=== PATIENT | male | born 1975 | race Caucasian/White ===

== ENCOUNTER 2018-06-30 15:09 | Inpatient (IN) | payer BC ==
[2018-06-30 15:57] LABS: ADD MAN DIFF? NO
[2018-06-30 16:09] LABS: WHITE BLOOD COUNT 8.2 10^3/ul (4.8-10.8)
[2018-06-30 16:09] LABS: BASOPHILS % 0.4 % (0.0-2.0); EOSINOPHILS # 0.1 10^3/ul (0.0-0.5); EOSINOPHILS % 1.6 % (0.0-7.0); HEMATOCRIT 32.9 % (42.0-52.0); HEMOGLOBIN 10.8 g/dl (14.0-18.0); LYMPHOCYTES # 2.7 10^3/ul (0.8-2.9); LYMPHOCYTES % 33.6 % (15.0-51.0); MEAN CORPUSCULAR HEMOGLOBIN 28.4 pg (29.0-33.0); MEAN CORPUSCULAR HGB CONC 32.8 g/dl (32.0-37.0); MEAN CORPUSCULAR VOLUME 86.6 fl (82.0-101.0); MEAN PLATELET VOLUME 8.2 fl (7.4-10.4); MONOCYTE # 0.7 10^3/ul (0.3-0.9); MONOCYTES % 8.7 % (0.0-11.0); NEUTROPHIL # 4.4 10^3/ul (1.6-7.5); NEUTROPHILS % 53.7 % (39.0-77.0); PLATELET COUNT 563 10^3/UL (140-415); RED CELL DISTRIBUTION WIDTH 13.4 % (11.5-14.5)
[2018-06-30] MEDS: KETOROLAC 30 MG INJ IV (16:09)
[2018-06-30] MEDS: SODIUM CHLORIDE 0.9% 1L BAG IV* (16:09)
[2018-06-30] MEDS: PIPER-TAZO 3.375 GM IV (PMX) 100 ML IVPB (16:09)
[2018-06-30 16:28] LABS: INR 0.97
[2018-06-30 16:29] LABS: BLOOD UREA NITROGEN 16 mg/dl (7-20); CALCIUM 9.3 mg/dl (8.4-10.2); CARBON DIOXIDE 31 mmol/L (21-31); CHLORIDE 103 mmol/L (97-110); GLUCOSE 140 mg/dl (70-220); PARTIAL THROMBOPLASTIN TIME 34.3 Sec (23.0-35.0); POTASSIUM 3.7 mmol/L (3.5-5.1); SODIUM 140 mmol/L (135-144)
[2018-06-30 16:41] LABS: TROPONIN-I < 0.012 ng/ml (0.000-0.120)
[2018-06-30] MEDS ORDERED: VANCOMYCIN IV PER PHARMACY XX (17:00)
[2018-06-30] MEDS ORDERED: ACETAMINOPHEN 325 MG TAB PO (17:00)
[2018-06-30] MEDS ORDERED: ONDANSETRON 4 MG INJ IV (17:00)
[2018-06-30] MEDS: VANCOMYCIN 1 GM (PMX) 250 ML IVPB (17:07)
[2018-06-30] MEDS ORDERED: NACL 0.9% 3 ML SYG IV (17:30)
[2018-06-30] MEDS ORDERED: PENDING SANTYL ORDER FOR WOUND CARE XX (20:30)
[2018-06-30] MEDS ORDERED: COLLAGENASE 5 GM (UD JAR) TOP (21:47)
[2018-06-30] MEDS: ZOLPIDEM 5 MG TAB PO (21:50)
[2018-06-30] MEDS: VANCOMYCIN 1 GM 250 ML IVPB (21:50)
[2018-07-01] MEDS: PIPER-TAZO 3.375 GM IV (PMX) 100 ML IVPB ×4 (00:05→21:27)
[2018-07-01 01:41] LABS: ADD UMIC NO; UR ASCORBIC ACID NEGATIVE (NEGATIVE); UR BILIRUBIN (Dip) NEGATIVE (NEGATIVE); UR BLOOD (Dip) NEGATIVE (NEGATIVE); UR CLARITY CLEAR (CLEAR); UR COLOR YELLOW (YELLOW); UR GLUCOSE (Dip) NEGATIVE (NEGATIVE); UR KETONES (Dip) NEGATIVE (NEGATIVE); UR LEUKOCYTE ESTERASE (Dip) NEGATIVE Leu/ul (NEGATIVE); UR NITRITE (Dip) NEGATIVE (NEGATIVE); UR SPECIFIC GRAVITY (Dip) 1.013 (1.003-1.030); UR TOTAL PROTEIN (Dip) NEGATIVE (NEGATIVE); UR UROBILINOGEN (Dip) NEGATIVE (NEGATIVE)
[2018-07-01] MEDS: VANCOMYCIN 1.25 GM in SOD CHLORIDE 0.9% 250 ML IVPB ×3 (05:10→17:11)
[2018-07-01 07:00] LABS: ADD MAN DIFF? NO
[2018-07-01 07:08] LABS: BASOPHILS % 0.4 % (0.0-2.0); EOSINOPHILS # 0.2 10^3/ul (0.0-0.5); EOSINOPHILS % 2.3 % (0.0-7.0); HEMATOCRIT 28.2 % (42.0-52.0); HEMOGLOBIN 9.1 g/dl (14.0-18.0); LYMPHOCYTES # 2.4 10^3/ul (0.8-2.9); LYMPHOCYTES % 35.2 % (15.0-51.0); MEAN CORPUSCULAR HEMOGLOBIN 28.1 pg (29.0-33.0); MEAN CORPUSCULAR HGB CONC 32.3 g/dl (32.0-37.0); MEAN PLATELET VOLUME 8.3 fl (7.4-10.4); MONOCYTE # 0.6 10^3/ul (0.3-0.9); MONOCYTES % 9.3 % (0.0-11.0); NEUTROPHIL # 3.5 10^3/ul (1.6-7.5); NEUTROPHILS % 50.8 % (39.0-77.0); PLATELET COUNT 456 10^3/UL (140-415); RED BLOOD COUNT 3.24 10^6/ul (4.70-6.10); RED CELL DISTRIBUTION WIDTH 13.6 % (11.5-14.5)
[2018-07-01 07:08] LABS: WHITE BLOOD COUNT 6.9 10^3/ul (4.8-10.8)
[2018-07-01 07:28] LABS: ALANINE AMINOTRANSFERASE 36 IU/L (13-69); ALBUMIN 2.5 g/dl (3.3-4.9); ALBUMIN/GLOBULIN RATIO 0.89; ALKALINE PHOSPHATASE 61 IU/L (42-121); ASPARTATE AMINO TRANSFERASE 34 IU/L (15-46); BILIRUBIN,INDIRECT 0.2 mg/dl (0-1.1); BILIRUBIN,TOTAL 0.2 mg/dl (0.2-1.3); BLOOD UREA NITROGEN 14 mg/dl (7-20); CALCIUM 8.3 mg/dl (8.4-10.2); CARBON DIOXIDE 26 mmol/L (21-31); CHLORIDE 112 mmol/L (97-110); CREATININE 0.92 mg/dl (0.61-1.24); GLUCOSE 92 mg/dl (70-220); POTASSIUM 4.2 mmol/L (3.5-5.1); SODIUM 143 mmol/L (135-144); TOTAL PROTEIN 5.3 g/dl (6.1-8.1)
[2018-07-01 08:02] LABS: HEMOGLOBIN A1C 5.6 % (0-5.9)
[2018-07-01 08:42] LABS: ANION GAP 5 (5-13)
[2018-07-01] MEDS: HYDROCODONE/APAP (5/325) TAB PO ×3 (09:38→22:33)
[2018-07-01 10:05] LABS: ANION GAP 6 (5-13)
[2018-07-01] MEDS: SODIUM HYPOCHLORITE (1/40) 1 APPLIC BTL IRR (21:28)
[2018-07-01] MEDS: ZOLPIDEM 5 MG TAB PO (22:33)
[2018-07-02] MEDS: ONDANSETRON 4 MG INJ IV (03:40)
[2018-07-02] MEDS: PIPER-TAZO 3.375 GM IV (PMX) 100 ML IVPB (05:43)
[2018-07-02 05:50] LABS: VANCOMYCIN,TROUGH 14.3 ug/ml (10.0-20.0)
[2018-07-02] MEDS: VANCOMYCIN 1.25 GM in SOD CHLORIDE 0.9% 250 ML IVPB (07:04)
[2018-07-02] MEDS: HYDROCODONE/APAP (5/325) TAB PO ×3 (09:01→21:19)
[2018-07-02] MEDS: SODIUM HYPOCHLORITE (1/40) 1 APPLIC BTL IRR ×2 (09:02→21:20)
[2018-07-02] MEDS: TRIMETHOPRIM/SULFAMETHOX (DS) TAB PO (21:20)
[2018-07-02] MEDS: ZOLPIDEM 5 MG TAB PO (23:13)
[2018-07-03] MEDS: ONDANSETRON 4 MG INJ IV (02:47)
[2018-07-03] MEDS: HYDROCODONE/APAP (5/325) TAB PO ×2 (03:10→09:25)
[2018-07-03] MEDS: TRIMETHOPRIM/SULFAMETHOX (DS) TAB PO (08:33)
[2018-07-03] MEDS: SODIUM HYPOCHLORITE (1/40) 1 APPLIC BTL IRR (08:34)
== END 2018-07-03 20:10 | disposition home health service (06) | DRG 603 ==
LOC: E/R 15:09 → 2NE 16:40
DX: L03.317 Cellulitis of buttock (principal); F11.10 Opioid abuse, uncomplicated; D64.9 Anemia, unspecified; S92.352A Displaced fracture of fifth metatarsal bone, left foot, initial encounter for closed fracture; X58.XXXA Exposure to other specified factors, initial encounter; Y93.89 Activity, other specified; W22.8XXA Striking against or struck by other objects, initial encounter; Z87.891 Personal history of nicotine dependence
CPT/HCPCS: 36415; 73630-LT; 80048; 80053; 80202; 81003; 83036; 83605; 84484; 85025; 85610; 85730; 87040; 87045; 87070; 87086; 93005; 96374; 96375; 99285-25